=== PATIENT | female | born 1935 | race Caucasian/White ===

== ENCOUNTER 2016-07-11 03:05 | Inpatient (IN) ==
[2016-07-11] MEDS ORDERED: ASPIRIN 325 MG TABLET PO STA (05:13)
[2016-07-11] MEDS ORDERED: NITROGLYCERIN 2% OINT 1 INCH/GM PACK TOP STA (05:13)
[2016-07-11] MEDS ORDERED: ONDANSETRON 4 MG/2 ML VIAL IV STA (05:13)
[2016-07-11] MEDS ORDERED: ASPIRIN 325 MG TABLET ONE (05:26)
[2016-07-11] MEDS ORDERED: ONDANSETRON 4 MG/2 ML VIAL ONE (05:26)
[2016-07-11] MEDS ORDERED: NITROGLYCERIN 2% OINT 1 INCH/GM PACK TOP ONE (05:26)
[2016-07-11 05:46] LABS: Basophils % 0.3 % (0.0-0.8); Eosinophils % 0.1 % (0.00-10.9); Hematocrit 44.2 VOL% (35.7-47.0); Hemoglobin 14.9 GM/DL (12.0-16.0); Immature Granulocytes % 0.3 %; Immature Granulocytes Absolute 0.02 #; Lymphocytes # 1.3 10*3/uL (1.4-4.0); Lymphocytes % 18.6 % (21.3-54.2); Mean Corpuscular HGB Conc 33.7 GM/DL (32-36); Mean Corpuscular Hemoglobin 28 PG (27-34); Mean Corpuscular Volume 83.4 FL (87-102); Mean Platelet Volume 9.6 FL (9.6-12.0); Monocytes # 0.5 10*3/uL (0.11-0.8); Neutrophils # 4.9 10*3/uL (1.4-7.4); Neutrophils % 72.7 % (38.7-73.9); Platelet Count 198 T/CUMM (130-400); Red Cell Distribution Width 13.3 % (9.3-17.3); White Blood Count 6.7 T/CUMM (4-12)
[2016-07-11 06:07] LABS: Albumin 4.3 G/DL (3.4-5.0); Bilirubin,Total 0.7 MG/DL (0.2-1.0); Calcium 9.1 MG/DL (8.5-10.1); Magnesium 2.1 MG/DL (1.8-2.4); Osmolality,Calculated 266.4 MOS/KG (273-304); Potassium 3.9 MMOL/L (3.5-5.1); Total Protein 7.9 G/DL (6.4-8.3)
[2016-07-11] MEDS ORDERED: ONDANSETRON 4 MG/2 ML VIAL IV PRN (06:29)
--- NOTE | 2016-07-11 06:29 | Emergency Department Note ---
IJanes Emily, am scribing for, and in the presence of, Ca Rose DO 05:03. IMilton Catherine, DO, personally performed the services described in this documentation, ascribed by Risa Marrero in my presence, and it is both accurate and complete 628 . Arrival - Arrival Chief Complaint: Chest Pain ED Nursing Triage Note: C/O Tightness in chest while she was being evaluated at [facility] for a nose bleed. Pt reports that she still feels a little tightness at this time. Pt recently lost her , so she has been under some stress. Mode of Arrival: Stretcher Limitations: No Limitations Source: Patient, Family (son) Time Seen by Provider: 07/11/16 04:49 - History of Present Illness HPI Narrative: Pt is a 80 y/o female who was transferred from [facility] in [place], [place], for further evaluation of chest pain at 530pm yesterday. Pt's original cc was epistaxis. Her recently on June 12, 2016. Pt notes having mild tightness in chest in waves, dull sensation, but denies chest pain. PMHx of ID in 2008 stents; heart cath. Pt is on Coumadin under supervision by Dr. Roberson, in which last check up was in 2015. Son reports [facility] was more concerned with BP elevated. Onset (ago): day(s) Consistency: constant Severity: mild Severity scale (1-10): 3 Quality: dull Date of Last Menstrual Period: PM Allergies/Adverse Reactions: Allergies Allergy/AdvReac Type Severity Reaction Status Date / Time ciprofloxacin [From Cipro] Allergy RASH Verified 07/28/14 11:00 Home Medications: Home Medications Medication Instructions Recorded Confirmed Type Aspirin EC Tab 81 mg PO DAILY 07/28/14 07/11/16 History Calcium Carbonate [Calcium] 600 mg PO DAILY 07/28/14 07/11/16 History Hydroxychloroquine [Plaquenil] 200 mg PO DAILY 07/28/14 07/11/16 History Lisinopril/Hctz 20-25 [Prinzide 1 mg PO DAILY 07/28/14 07/11/16 History 20-25] Metoprolol Tartrate 25 mg PO DAILY 07/28/14 07/11/16 History [place]-3/Dha/Epa/Fish Oil [Fish Oil] 1,000 mg PO DAILY 07/28/14 07/11/16 History Rosuvastatin [Crestor] 1 tablet PO DAILY 07/28/14 07/11/16 History Warfarin Sodium 5 mg PO DIRECTED 07/28/14 07/11/16 History Warfarin [Coumadin] 2.5 mg PO QOTHER DAY@1800 07/28/14 07/11/16 History cycloSPORINE OPH EMUL [Restasis] 1 drop BOTH EYES BID 07/28/14 07/11/16 History Review of System - Review of System 12 point system: reviewed and no additional remarkable complaints except as stated - Review of System Constitutional: Absent: diaphoresis, fever, weakness Head/Ears/Nose/Throat: Present: epistaxis ([facility] original complaint) Respiratory: Absent: cough, respiratory distress Cardiovascular: Absent: chest pain (tightness) Gastrointestinal: Absent: abdominal pain, nausea, vomiting Musculoskeletal: Absent: arm pain, neck pain Skin: Absent: rash Neurological: Absent: headache, weakness Psychiatric: Present: anxiety Medical,Surgical,& Family Hx - Medical History Cardio: History of: CAD, Hypertension, ID (2009), Cardiovascular Problems Neurology: History of: TIA Rheumatology: History of;: Sjogrens Hematology: History of: Clotting Problems (BLOOD CLOT HEART 2008. Patient now on Coumadin.) - Surgical History Cardiac Surgeries: Sugical HX of: Cardiac Surgery (STENT 2008) - Family History Family History: noncontributory - Social History Smoking Status: Never smoker Frequency of Alcohol Use: None Type of Drug Use: None Marital Status: Lives With:: Alone Functional capacity: independent ambulation Exam Vital Signs: Vital Signs Temperature 98.2 F 07/11/16 03:03 Pulse Rate 85 07/11/16 03:03 Respiratory Rate 14 07/11/16 03:03 Blood Pressure 201/95 07/11/16 03:03 O2 Sat by Pulse Oximetry 97 07/11/16 03:03 - General General appearance: alert, in no apparent distress - Head Head exam: Present: atraumatic, normocephalic - Eye Eye exam: Present: PERRL, EOMI - ENT ENT exam: Present: mucous membranes moist. Absent: mucous membranes dry - Neck Neck exam: Present: full ROM. Absent: tenderness - Chest Chest inspection: Present: symmetric chest wall rise. Absent: tenderness - Respiratory Respiratory exam: Present: normal lung sounds bilaterally. Absent: respiratory distress - Cardiovascular Cardiovascular exam: Present: regular rate, normal rhythm, normal heart sounds - Abdominal Exam Abdominal exam: Present: soft, normal bowel sounds. Absent: distention, tenderness, guarding, rebound - Extremities Exam Extremities exam: Present: full ROM. Absent: tenderness, pedal edema - Back Exam Back exam: Present: normal inspection, full ROM - Neurological Exam Neurological exam: Present: alert, oriented X3, CN II-XII intact. Absent: motor sensory deficit - Psychiatric Psychiatric exam: Present: normal affect, normal mood - Skin Skin exam: Present: warm, dry, intact, normal color Course Course Narrative: This is an 80-year-old female who was transferred from another facility for evaluation of some chest pressure and high blood pressure. She went to the other facility for evaluation of a nosebleed while she was there they noted she was hypertensive. They begin treating high blood pressure and then the patient developed some chest pain. Although her enzymes were negative the ER physician and transferred her was concerned because her pain was coming and going. She does have a cardiac history having had one heart attack in 1 stent. She is followed by Dr. Roberson from the cardiology group. Her son reports she's had some recent stress her approximately 3 weeks ago. No other changes are reported. The patient is pain-free on my evaluation. She did have 2 negative troponins at the other facility. Physical exam patient's awake alert a viral signs are stable she's afebrile HEENT exam is normal neck is supple heart is regular rate and rhythm her lungs are clear in the anterior correia. She has no reproducible pain to my exam her abdomen is round soft nontender with good bowel sounds surgeries are intact her neurologic exam is nonfocal. Treatment in the ER included an EKG which shows nonspecific changes she does have some T-wave inversion in the lateral leads she has deep Q waves in the inferior leads but I do not appreciate findings for a STEMI. All of her previous testing was reviewed. I put some nitro paste on the patient with improvement in her symptoms. I placed a phone call to the cardiology service and will be admitting the patient at this time. - Consultations Consultation #1: Dr. Forrest will be admitting the patient for cardilogy evaluation and treatment Time: 06:27 Results - Labs CBC & BMP: 07/11/16 05:35 07/11/16 05:35 Lab Results: I have reviewed the patients labs Labs: Laboratory Tests 07/11/16 07/11/16 05:35 05:35 MCV 83.4 L Lymph % (Auto) 18.6 L Lymph # (Auto) 1.3 L Sodium 133 L Glucose 116 H Calculated Osmolality 266.4 L Globulin 3.6 H - EKG EKG results: interpreted by ERMD - Impressions non specific ST T changes - t waves inverted lateral leads - Diagnostic Findings Procedure: Chest x-ray: report reviewed by me (no acute process) Disposition Clinical Impression: Chest pain, HTN (hypertension) Case discussed with: patient, patient's family Disposition: Still a Patient Condition: Stable Time of Disposition: 06:28
--- NOTE | 2016-07-11 07:59 | EKG Report ---
Stationary ECG Study [facility] ER Test Date: 07/11/2016 3:11:35 AM Pat Name: DEION HAYS Department: Room: 289 Gender: F Lab Support Tech: : 1935 Requested by: Ca Rose Order Number: [id number] Reading MD: SEAN ORTIZ Intervals [place] Rate: 85 P: 71 HI: 202 QRS: -57 QRSD: 96 T: 74 QT: 371 QTc: 413 Interpretive Statements SINUS RHYTHM LEFT ANTERIOR FASCICULAR BLOCK ANTEROSEPTAL MYOCARDIAL INFARCTION, PROBABLY RECENT * Electronically Signed On 07-11-16 15:09:37 CDT by SEAN ORTIZ [email or web address]
--- NOTE | 2016-07-11 09:20 | EKG Report ---
Stationary ECG Study [facility] Test Date: 07/11/2016 9:19:52 AM Pat Name: DEION HAYS Department: Room: 289 Gender: F Drop Hammer Operator Helper: MALIA : 1935 Requested by: Ca Rose Order Number: [id number] Reading MD: SEAN ORTIZ Intervals [place] Rate: 70 P: 999 MS: 0 QRS: -47 QRSD: 94 T: -1 QT: 447 QTc: 467 Interpretive Statements SINUS RHYTHM WITH NONCONDUCTED PAC LEFT ANTERIOR FASCICULAR BLOCK ANTEROSEPTAL MYOCARDIAL INFARCTION, PROBABLY RECENT Electronically Signed On 07-11-16 15:14:19 CDT by SEAN ORTIZ [email or web address]
--- NOTE | 2016-07-11 11:32 | EKG Report ---
Stationary ECG Study [facility] Test Date: 07/11/2016 11:31:26 AM Pat Name: DEION HAYS Department: Room: 289 Gender: F Second Mate: MALIA : 1935 Requested by: Ca Rose Order Number: [id number] Reading MD: SEAN ORTIZ Intervals [place] Rate: 76 P: 91 NV: 184 QRS: -71 QRSD: 85 T: 196 QT: 424 QTc: 454 Interpretive Statements SINUS RHYTHM LEFT ANTERIOR FASCICULAR BLOCK ANTEROSEPTAL MYOCARDIAL INFARCTION, PROBABLY RECENT Electronically Signed On 07-11-16 15:16:31 CDT by SEAN OTRIZ [email or web address]
--- NOTE | 2016-07-11 12:02 | Cardiology History & Physical ---
Assessment and Plan (1) Chest pain Status: Acute Assessment and plan: Ultimately, I think the patient needs to undergo cardiac ischemic screening. I discussed the option of doing this as an outpatient, as an inpatient, or proceeding directly to cardiac catheterization for definitive coronary artery assessment. The patient would prefer to remain in the hospital and get noninvasive workup tomorrow. I'm going to schedule her for a nuclear stress test in the morning. Current Visit: Yes (2) HTN (hypertension) Status: Acute Assessment and plan: Her blood pressure was poorly controlled on arrival. I'm going to adjust her medication to try to optimize this. Current Visit: Yes (3) History of anterior wall myocardial infarction Status: Acute Current Visit: Yes (4) Coronary artery disease Status: Acute Current Visit: Yes (5) Chronic anticoagulation Status: Acute Current Visit: Yes (6) Hyperlipidemia Status: Acute Current Visit: Yes (7) Abnormal EKG Status: Acute Current Visit: Yes (8) Grieving Status: Acute Assessment and plan: The patient's about 3 weeks ago. Current Visit: Yes History of Present Illness History of present illness: Ms. Andrews is a 80 year old female who has a history of hypertension, hyperlipidemia, and coronary artery disease. She is also on chronic anticoagulation with Coumadin. Her primary building and construction manager is Dr. Roberson. The patient had an anterior myocardial infarction in 2008 and received a stent at that time from Dr. Roberson. She subsequently had cardiac catheterization in 2011 for some chest pain symptoms, but this did not show any new high-grade disease. Her stent was patent at that time. The patient developed a nosebleed yesterday. This lasted for several hours. She eventually went to her local emergency room in [place]. The nosebleed stopped but the patient developed some sensation of chest pressure. This was in the center of her chest. There was no radiation. It was mild to moderate in severity. There were no specific exacerbating or alleviating factors. There was no diaphoresis or nausea. She did not have any dyspnea, orthopnea, or peripheral edema. The symptoms waxed and waned but with her cardiac history she was transferred here for further workup and management. At the time I was seeing her she was pain-free. She has not had any fever, chills, or cough. Also of note, her blood pressure was extremely high in the emergency room. The patient was suspicious that maybe her PT/INR was too high which was contributing to her nosebleed. This is stopped and not recurred. The patient was admitted overnight to rule out myocardial infarction. Her cardiac enzymes have been benign. Her EKG is abnormal showing an old anteroseptal myocardial infarction with some diffuse ST- T changes. However, this EKG is not really significantly different than her old EKGs. Another factor in the patient's presentation is the of her about 3 weeks ago which has been considerable stress on the family. Home Medications Medication Instructions Recorded Confirmed Type Aspirin EC Tab 81 mg PO DAILY 07/28/14 07/11/16 History Calcium Carbonate [Calcium] 600 mg PO DAILY 07/28/14 07/11/16 History Hydroxychloroquine [Plaquenil] 200 mg PO DAILY 07/28/14 07/11/16 History Lisinopril/Hctz 20-25 [Prinzide 1 mg PO DAILY 07/28/14 07/11/16 History 20-25] Metoprolol Tartrate 25 mg PO DAILY 07/28/14 07/11/16 History [place]-3/Dha/Epa/Fish Oil [Fish Oil] 1,000 mg PO DAILY 07/28/14 07/11/16 History Rosuvastatin [Crestor] 10 mg PO DAILY 07/28/14 07/11/16 History Warfarin Sodium 5 mg PO DIRECTED 07/28/14 07/11/16 History Warfarin [Coumadin] 2.5 mg PO QOTHER DAY@1800 07/28/14 07/11/16 History cycloSPORINE OPH EMUL [Restasis] 1 drop BOTH EYES BID 07/28/14 07/11/16 History Allergies Allergy/AdvReac Type Severity Reaction Status Date / Time ciprofloxacin [From Cipro] Allergy RASH Verified 07/28/14 11:00 12 point system: reviewed and no additional remarkable complaints except as stated Medical,Surgical,& Family Hx - Medical History Cardio: History of: CAD, Hypertension, [place] (2008), Cardiovascular Problems Psychological: History of: Depression Neurology: History of: TIA HEENT: History of: Eye Problem (cataracts bilat) Rheumatology: History of;: Sjogrens Gastrointestinal: History of: Polyps (removed) Hematology: History of: Clotting Problems (BLOOD CLOT HEART 2008. Patient now on Coumadin.) - Surgical History Cardiac Surgeries: Sugical HX of: Cardiac Catheterization (stent 2008), Cardiac Surgery (STENT 2008) HEENT Surgeries: Surgical HX of: Tonsilectomy & Adenoidectomy Abdominal Surgeries: Surgical HX of: Colonoscopy Reproductive Surgeries: Surgical HX of;: Dilation and Curettage, Hysterectomy ( partial) - Family History Family History: Reports;: Family Diabetes (mother), Family Heart Disease (father ), Family Hypertension (mother, sibling), Family Stroke (mother), Additional Family History (mother RA) - Social History Smoking Status: Never smoker Frequency of Alcohol Use: None Type of Drug Use: None Cardiology Physical Exam - Constitutional Vitals: Vital Signs Temp Pulse Resp BP Pulse Ox 96.4 F L 76 20 168/85 99 07/11/16 07:55 07/11/16 07:55 07/11/16 07:55 07/11/16 07:55 07/11/16 07:55 Intake and Output 07/10/16 07/11/16 07/11/16 23:59 07:59 15:59 Other: Weight 53.07 kg Patient Weight 07/11/16 23:59 Weight 53.07 kg Exam: General: Appears well developed, well nourished, no apparent distress HEENT: Normocephalic, atraumatic Neck: Supple Neck, Midline Trachea, soft left carotid bruit Cardiac: Reg Rate and Rhythm, 2/6 systolic Murmur, no gallop, no rub Lungs: Clear to auscultation, No Wheeze, Rales, Rhonchi Neuro: Cranial Nerve 2-12 Intact, Motor Function Grossly Intact Abdomen: Soft, Active Bowel Sounds, No Masses, No Pulsations/Bruits Skin: Normal color, no rash Extremities: No Clubbing, No Cyanosis, No Edema, Normal Upper Extr. Pulses Musculoskeletal: No acute abnormality noted Psychiatric: The patient does not appear to be anxious or depressed Result/EKG - Labs CBC & BMP: 07/11/16 05:35 07/11/16 05:35 Lab Results: I have reviewed the past 24 hour labs Labs: Laboratory Results - last 24 hr 07/11/16 07/11/16 08:20 10:42 Troponin I 0.043 0.044 - EKG EKG results: interpreted by me
[2016-07-11 18:32] LABS: INR 1.7; PT Patient Result 18.4 SECS
[2016-07-11] MEDS: WARFARIN 2.5 MG TABLET PO SCH (18:45)
[2016-07-11] MEDS: cycloSPORINE OPH EMUL 1 VIAL BOTH EYES SCH (22:03)
[2016-07-12 05:33] LABS: INR 1.6
[2016-07-12] MEDS ORDERED: REGADENOSON 0.4 MG/5 ML SYRINGE IV ONE (07:55)
--- NOTE | 2016-07-12 09:52 | Cardiology Progress Note ---
<Luz Maria Hassan E - Last Filed: 07/12/16 09:52> Assessment and Plan - Time spent with patient Time spent with patient: Greater than 30 minutes (1) Chest pain Status: Resolved Assessment and plan: See plan of care listed below Current Visit: Yes (2) Chronic anticoagulation Status: Chronic Assessment and plan: See plan of care listed below Current Visit: Yes (3) Coronary artery disease Status: Chronic Assessment and plan: See plan of care listed below Current Visit: Yes (4) HTN (hypertension) Status: Chronic Assessment and plan: See plan of care listed below Current Visit: Yes (5) History of anterior wall myocardial infarction Status: Chronic Assessment and plan: See plan of care listed below Current Visit: Yes (6) Hyperlipidemia Status: Chronic Assessment and plan: See plan of care listed below Current Visit: Yes Cardiology - PN: Subj Interval history: FOOD STOREROOM CLERK: DR. MURRAY PCP: DR. DEBBIE BACON Summary: Ms. Andrews, 80 year old female with risk factors including: known CAD , hypertension, hyperlipidemia, sedentary lifestyle. History of anterior [place] 2008 requiring PCI-stent. She subsequently had cardiac catheterization in 2011 for some chest pain symptoms, but this did not show any new high-grade disease. Her stent was patent at that time. 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 Tuesday, she developed a nosebleed which lasted for several hours (INR was not supratherapeutic). She eventually went to her local emergency room in [place] and found to have significant hypertension. The nosebleed stopped but the patient developed some sensation of substernal chest pressure without radiation. There were no specific exacerbating or alleviating factors, she considered the pain mild to moderate. The symptoms waxed and waned but with her cardiac history she was transferred to [facility] for further workup and management. She was offered [facility] but prefers noninvasive work-up. She is scheduled for stress testing this morning. CIE negative, EKG unremarkable. Of note, patient's three weeks ago and this has been a tremendous stressor. DAY 2: JULY 12, 2016: Overnight, patient has done well. No chest pain, heaviness or tightness. She is NPO for stress testing this morning. Vital signs are stable. ASSESSMENT/PLAN: 1. CHEST PAIN - NPO for stress testing this morning. Will add PPI 2. KNOWN CAD S/P ANTERIOR [place] 2008 - continue ASA, betablockade, EMMA-Inhibitor and lipid lowering agent 3. HYPERTENSION - adequately controlled. Actually on the low-side this morning 4. DYSLIPIDEMIA - continue lipide lowering agent. 5. HIGH RISK MEDICATION - Coumadin. Subtherapeutic INR. Exam (Progress Note) - Constitutional Vitals: Period Temp Pulse Resp BP Sys/Britt Pulse Ox Last 24 Hr 95.6 F-99.1 F 63-87 17-20 96-126/55-76 95-100 General appearance: no acute distress, under weight - Head Head exam: Present: normal inspection, normocephalic - Eye Eye exam: Present: EOMI. Absent: nystagmus, periorbital swelling Pupils: Present: COREY, normal accommodation - ENT ENT exam: Present: normal external ear exam, normal oropharynx - Neck Neck exam: Absent: tenderness, thyromegaly - Respiratory Respiratory exam: Present: clear to auscultation bilaterally. Absent: accessory muscle use, chest wall tenderness - Cardiovascular Cardiovascular exam: Present: regular rate and rhythm. Absent: carotid bruit, JVD - GI/Abdominal GI/Abdominal exam: Present: normal bowel sounds, soft. Absent: tenderness - Extremities Exam Extremities exam: Present: normal capillary refill, full ROM. Absent: calf tenderness - Back Exam Back exam: Absent: CVA tenderness (L), CVA tenderness (R), muscle spasm - Neurological Exam Neurological exam: Present: alert, oriented X3 - Psychiatric Psychiatric exam: Present: normal affect, normal mood - Skin Skin exam: Present: normal color. Absent: rash Result/EKG - Labs CBC & BMP: 07/11/16 05:35 07/11/16 05:35 Lab Results: I have reviewed the past 24 hour labs Labs: Laboratory Results - last 24 hr 07/11/16 07/11/16 07/12/16 10:42 17:59 04:28 INR 1.7 1.6 PT Patient/Control Mix 18.4 17.0 Troponin I 0.044 - Diagnostic Findings Procedure: Chest x-ray: report reviewed by me - EKG EKG results: interpreted by tx EKG shows: sinus rhythm <Ugo Murray - Last Filed: 07/12/16 18:00> Cardiology - PN: Subj Interval history: Patient personally interviewed and examined. Chart reviewed. Discussed case with Luz Maria Hassan SALES REPRESENTATIVE [employer]. History is as above. The patient's chest pain is certainly atypical. She had a recent nosebleed and her blood pressures were not initially managed but is stable at this time. She has some atypical chest pain and can't perfuse times Daily which we are waiting up. The patient does state that since her event of nosebleed Tuesday that she has been feeling weak. The daughter who is with her confirms this. Patient examined and is stable and as as noted. After we have her cardiac perfusion study available we will then review this and make further recommendations. Hopefully she will be discharged soon. Exam (Progress Note) - Constitutional Vitals: Period Temp Pulse Resp BP Sys/Britt Pulse Ox Last 24 Hr 95.6 F-99.1 F 63-87 17-20 96-132/55-76 96-100 Result/EKG - Labs CBC & BMP: 07/11/16 05:35 07/11/16 05:35 Labs: Laboratory Results - last 24 hr 07/11/16 07/12/16 17:59 04:28 INR 1.7 1.6 PT Patient/Control Mix 18.4 17.0
--- NOTE | 2016-07-12 09:58 | Event Note ---
Underwent Lexiscan protocol due to gait instability. Tolerated without complaints of chest pain, heaviness or tightness. No arrythmia noted. No ST changes noted. Now, to nuclear medicine to complete final scan. Dr. Hampton to read, interpret and advise.
[2016-07-12] MEDS: OMEGA 3 ACID ETHYL ESTERS 1 GM CAPSULE PO SCH (10:21)
[2016-07-12] MEDS: ROSUVASTATIN 10 MG TABLET PO SCH (10:21)
[2016-07-12] MEDS: HYDROXYCHLOROQUINE 200 MG TABLET PO SCH (10:21)
[2016-07-12] MEDS: CALCIUM (CARBONATE) 600 MG TABLET PO SCH (10:21)
[2016-07-12] MEDS: ASPIRIN EC 81 MG TABLET PO SCH (10:21)
[2016-07-12] MEDS: LISINOPRIL/HCTZ 20-25 MG TABLET PO SCH (10:21)
[2016-07-12] MEDS: METOPROLOL SUCCINATE XL 25 MG TABLET PO SCH (10:21)
[2016-07-12] MEDS: cycloSPORINE OPH EMUL 1 VIAL BOTH EYES SCH ×2 (10:22→21:08)
[2016-07-12] MEDS ORDERED: WARFARIN 5 MG TABLET PO SCH (18:00)
--- NOTE | 2016-07-12 20:54 | Nuclear Medicine Report ---
DATE: 07/11/2016 The raw data cine mode shows minimal patient motion with modest GI artifact. IMPRESSION: 1. SCINTIGRAPHICALLY ABNORMAL MYOCARDIAL PERFUSION WITH SEVERE LARGE FIXED APICAL DEFECT INVOLVING THE DISTAL ANTERIOR WALL SUGGESTING SCARRING WITH NO SUGGESTION OF ISCHEMIA 2. BORDERLINE OVERALL LEFT VENTRICULAR SYSTOLIC FUNCTION WITH EJECTION FRACTION ESTIMATED AT 53% WI TH MODERATE TO LARGE AREA OF APICAL AKINESIS INVOLVING THE DISTAL ANTERIOR WALL. 3. NORMAL END-DIASTOLIC VOLUME IS NOTED. RECOMMENDATION AND DISCUSSION: This study suggests severe scarring of the apex involving the distal anterior wall. There is no suggestive ischemia. The patient's borderline overall LV Function is n oted. Procedure performed and interpreted at [facility] Department of Radiology.
[2016-07-13 06:13] LABS: Basophils % 0.2 % (0.0-0.8); Eosinophils # 0.1 10*3/uL (0.0-0.87); Eosinophils % 2.1 % (0.00-10.9); Hematocrit 41.7 VOL% (35.7-47.0); Hemoglobin 13.6 GM/DL (12.0-16.0); Immature Granulocytes % 0.2 %; Immature Granulocytes Absolute 0.01 #; Lymphocytes # 1.7 10*3/uL (1.4-4.0); Lymphocytes % 31.4 % (21.3-54.2); Mean Corpuscular HGB Conc 32.6 GM/DL (32-36); Mean Corpuscular Hemoglobin 28 PG (27-34); Mean Corpuscular Volume 85.5 FL (87-102); Mean Platelet Volume 9.7 FL (9.6-12.0); Monocytes # 0.6 10*3/uL (0.11-0.8); Monocytes % 11.6 % (1.7-12.7); Neutrophils # 2.9 10*3/uL (1.4-7.4); Neutrophils % 54.5 % (38.7-73.9); Platelet Count 185 T/CUMM (130-400); Red Blood Count 4.88 MC/CUMM (3.8-5.5); Red Cell Distribution Width 13.7 % (9.3-17.3); White Blood Count 5.3 T/CUMM (4-12)
[2016-07-13 06:34] LABS: Magnesium 2.2 MG/DL (1.8-2.4); Osmolality,Calculated 269.2 MOS/KG (273-304); Potassium 4.3 MMOL/L (3.5-5.1)
[2016-07-13] MEDS: ASPIRIN EC 81 MG TABLET PO SCH (08:45)
[2016-07-13] MEDS: METOPROLOL SUCCINATE XL 25 MG TABLET PO SCH (08:45)
[2016-07-13] MEDS: ROSUVASTATIN 10 MG TABLET PO SCH (08:45)
[2016-07-13] MEDS: OMEGA 3 ACID ETHYL ESTERS 1 GM CAPSULE PO SCH (08:45)
[2016-07-13] MEDS: CALCIUM (CARBONATE) 600 MG TABLET PO SCH (08:45)
[2016-07-13] MEDS: LISINOPRIL/HCTZ 20-25 MG TABLET PO SCH (08:45)
[2016-07-13] MEDS: HYDROXYCHLOROQUINE 200 MG TABLET PO SCH (08:45)
[2016-07-13] MEDS: cycloSPORINE OPH EMUL 1 VIAL BOTH EYES SCH ×2 (08:46→21:10)
[2016-07-13 11:01] LABS: INR 1.8; PT Patient Result 19.6 SECS
--- NOTE | 2016-07-13 15:41 | Cardiology Progress Note ---
<Nida Grant - Last Filed: 07/13/16 15:35> Assessment and Plan (1) Chest pain Status: Acute Assessment and plan: Patient continues to complain of intermittent mild chest discomfort. She is currently chest pain-free. This could possibly be stress related as the patient 's approximately 3 weeks ago. Will discuss case further with Dr. Murray, invasive workup versus possible GI workup. Will add PPI. Further plan and addendum to follow per Dr. Murray. Current Visit: Yes (2) Chronic anticoagulation Status: Chronic Assessment and plan: Today is 1.8. Continue to monitor with daily INR. Current Visit: Yes (3) Coronary artery disease Status: Chronic Current Visit: Yes (4) HTN (hypertension) Status: Chronic Assessment and plan: Blood pressure is well controlled. Will continue current plan of care. Current Visit: Yes (5) History of anterior wall myocardial infarction Status: Chronic Current Visit: Yes (6) Hyperlipidemia Status: Chronic Assessment and plan: Continue current plan of care with lipid lowering agent. Current Visit: Yes Cardiology - PN: Subj Interval history: COAT CHECKER: DR. MURRAY PCP: DR. DEBBIE BACON Summary: Ms. Andrews, 80 year old female with risk factors including: known CAD , hypertension, hyperlipidemia, sedentary lifestyle. History of anterior [place] 2008 requiring PCI-stent. She subsequently had cardiac catheterization in 2011 for some chest pain symptoms, but this did not show any new high-grade disease. Her stent was patent at that time. 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 Tuesday, she developed a nosebleed which lasted for several hours (INR was not supratherapeutic). She eventually went to her local emergency room in [place] and found to have significant hypertension. The nosebleed stopped but the patient developed some sensation of substernal chest pressure without radiation. There were no specific exacerbating or alleviating factors, she considered the pain mild to moderate. The symptoms waxed and waned but with her cardiac history she was transferred to [facility] for further workup and management. She was offered C but prefers noninvasive work-up. CIE negative , EKG unremarkable. Of note, patient's three weeks ago and this has been a tremendous stressor. Patient underwent nuclear stress testing yesterday morning. 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 There is no suggestive of ischemia. Patient was seen and examined on telemetry. She reports she continued to have mild episodes of chest discomfort throughout the night. She describes this as a chest tightness. Nonradiating. She is unable to identify any alleviating or aggravating factors. She tells me that her chest tightness is less severe than when she presented to the ER on Tuesday. She denies shortness of breath and heart palpitations/heart racing. She is without chest pain, heaviness and tightness at this current time. INR is 1.8 today. We will discuss this further with Dr. Murray. Further plan and addendum to follow. Exam (Progress Note) - Constitutional Vitals: Period Temp Pulse Resp BP Sys/Britt Pulse Ox Last 24 Hr 96.8 F-98.1 F 67-81 16-20 102-145/58-74 96-98 Exam: General appearance: no acute distress, under weight - Head Head exam: Present: normal inspection, normocephalic - Eye Eye exam: Present: EOMI. Absent: nystagmus, periorbital swelling Pupils: Present: COREY, normal accommodation - ENT ENT exam: Present: normal external ear exam, normal oropharynx - Neck Neck exam: Absent: tenderness, thyromegaly - Respiratory Respiratory exam: Present: clear to auscultation bilaterally. Absent: accessory muscle use, chest wall tenderness - Cardiovascular Cardiovascular exam: Present: regular rate and rhythm. Absent: carotid bruit, JVD - GI/Abdominal GI/Abdominal exam: Present: normal bowel sounds, soft. Absent: tenderness - Extremities Exam Extremities exam: Present: normal capillary refill, full ROM. Absent: calf tenderness - Back Exam Back exam: Absent: CVA tenderness (L), CVA tenderness (R), muscle spasm - Neurological Exam Neurological exam: Present: alert, oriented X3 - Psychiatric Psychiatric exam: Present: normal affect, normal mood - Skin Skin exam: Present: normal color. Absent: rash Result/EKG - Labs CBC & BMP: 07/13/16 05:22 07/13/16 05:22 Lab Results: I have reviewed the past 24 hour labs Labs: Laboratory Results - last 24 hr 07/13/16 07/13/16 07/13/16 05:22 05:22 10:39 WBC 5.3 RBC 4.88 Hgb 13.6 Hct 41.7 MCV 85.5 L MCH 28 MCHC 32.6 RDW 13.7 Plt Count 185 MPV 9.7 Neut % (Auto) 54.5 Lymph % (Auto) 31.4 [place] % (Auto) 11.6 Eos % (Auto) 2.1 Baso % (Auto) 0.2 Neut # (Auto) 2.9 Lymph # (Auto) 1.7 [place] # (Auto) 0.6 Eos # (Auto) 0.1 Baso # (Auto) 0.0 Immature Gran % 0.2 Nucleated RBC % 0.0 Immature Gran # 0.01 Nucleated RBCs # 0.00 INR 1.8 PT Patient/Control Mix 19.6 Sodium 134 L Potassium 4.3 Chloride 96 L Carbon Dioxide 30 Anion Gap 12.3 BUN 22 H Creatinine 1.00 GFR Calculation 48 BUN/Creatinine Ratio 22.00 H Glucose 81 Calculated Osmolality 269.2 L Calcium 9.0 Magnesium 2.2 <Ugo Murray - Last Filed: 07/13/16 17:28> Cardiology - PN: Subj Interval history: Patient personally interviewed and examined. Chart reviewed. Discussed the patient's case with Nida Grant CLINICAL LABORATORY SCIENTIST. I agree with the history exam and assessment. In addition the patient's cardiac perfusion study indeed does not reveal any inducible ischemia but with overall normal ejection fraction and scarring in the apex which is an old finding. Ejection fraction is 53%. Patient's biggest complaint is that he is feeling fatigued. I suspect this may be secondary to the Procardia and her blood pressures dropping as much as they have. They're essentially normal but they're much more than what they were when she was admitted. She feels weak when she gets up. We'll continue to monitor and do orthostatic blood pressures. We'll encourage her to get up and about. In the morning we'll reassess the patient. We have continued pain issues concerning this being her heart then proceeding with cardiac catheterization would be appropriate. We may just need to give her time to adjust to the Procardia but her blood pressures. Hopefully home soon. Exam (Progress Note) - Constitutional Vitals: Period Temp Pulse Resp BP Sys/Britt Pulse Ox Last 24 Hr 96.8 F-98.1 F 67-81 16-20 102-145/54-74 94-98 Result/EKG - Labs CBC & BMP: 07/13/16 05:22 07/13/16 05:22 Labs: Laboratory Results - last 24 hr 07/13/16 07/13/16 07/13/16 05:22 05:22 10:39 WBC 5.3 RBC 4.88 Hgb 13.6 Hct 41.7 MCV 85.5 L MCH 28 MCHC 32.6 RDW 13.7 Plt Count 185 MPV 9.7 Neut % (Auto) 54.5 Lymph % (Auto) 31.4 [place] % (Auto) 11.6 Eos % (Auto) 2.1 Baso % (Auto) 0.2 Neut # (Auto) 2.9 Lymph # (Auto) 1.7 [place] # (Auto) 0.6 Eos # (Auto) 0.1 Baso # (Auto) 0.0 Immature Gran % 0.2 Nucleated RBC % 0.0 Immature Gran # 0.01 Nucleated RBCs # 0.00 INR 1.8 PT Patient/Control Mix 19.6 Sodium 134 L Potassium 4.3 Chloride 96 L Carbon Dioxide 30 Anion Gap 12.3 BUN 22 H Creatinine 1.00 GFR Calculation 48 BUN/Creatinine Ratio 22.00 H Glucose 81 Calculated Osmolality 269.2 L Calcium 9.0 Magnesium 2.2
[2016-07-13] MEDS: PANTOPRAZOLE 40 MG TABLET PO SCH (16:57)
[2016-07-13] MEDS: WARFARIN 2.5 MG TABLET PO SCH (17:00)
[2016-07-14 05:46] LABS: Basophils % 0.6 % (0.0-0.8); Eosinophils # 0.1 10*3/uL (0.0-0.87); Hematocrit 41.1 VOL% (35.7-47.0); Hemoglobin 13.6 GM/DL (12.0-16.0); Immature Granulocytes % 0.2 %; Immature Granulocytes Absolute 0.01 #; Lymphocytes # 1.8 10*3/uL (1.4-4.0); Lymphocytes % 36.2 % (21.3-54.2); Mean Corpuscular HGB Conc 33.1 GM/DL (32-36); Mean Corpuscular Hemoglobin 28 PG (27-34); Mean Corpuscular Volume 84.7 FL (87-102); Mean Platelet Volume 9.7 FL (9.6-12.0); Monocytes # 0.5 10*3/uL (0.11-0.8); Monocytes % 10.3 % (1.7-12.7); Neutrophils # 2.5 10*3/uL (1.4-7.4); Neutrophils % 50.7 % (38.7-73.9); Platelet Count 193 T/CUMM (130-400); Red Blood Count 4.85 MC/CUMM (3.8-5.5); Red Cell Distribution Width 13.5 % (9.3-17.3)
[2016-07-14 05:55] LABS: INR 1.6; PT Patient Result 17.9 SECS
[2016-07-14 06:13] LABS: Calcium 8.7 MG/DL (8.5-10.1); Magnesium 2.1 MG/DL (1.8-2.4); Osmolality,Calculated 268.2 MOS/KG (273-304)
[2016-07-14] MEDS: LISINOPRIL/HCTZ 20-25 MG TABLET PO SCH (09:07)
[2016-07-14] MEDS: OMEGA 3 ACID ETHYL ESTERS 1 GM CAPSULE PO SCH (09:07)
[2016-07-14] MEDS: ASPIRIN EC 81 MG TABLET PO SCH (09:07)
[2016-07-14] MEDS: HYDROXYCHLOROQUINE 200 MG TABLET PO SCH (09:07)
[2016-07-14] MEDS: CALCIUM (CARBONATE) 600 MG TABLET PO SCH (09:07)
[2016-07-14] MEDS: PANTOPRAZOLE 40 MG TABLET PO SCH (09:07)
[2016-07-14] MEDS: METOPROLOL SUCCINATE XL 25 MG TABLET PO SCH (09:08)
[2016-07-14] MEDS: ROSUVASTATIN 10 MG TABLET PO SCH (09:08)
[2016-07-14] MEDS: cycloSPORINE OPH EMUL 1 VIAL BOTH EYES SCH ×2 (09:11→20:55)
--- NOTE | 2016-07-14 13:08 | Cardiology Progress Note ---
<Nida Grant - Last Filed: 07/14/16 13:05> Assessment and Plan (1) Chest pain Status: Resolved Assessment and plan: Vision without chest pain, heaviness and tightness. Patient had normal Cardiolite stress test this admission. Current Visit: Yes (2) Chronic anticoagulation Status: Chronic Assessment and plan: Subtherapeutic at 1.6. Coumadin dose has been adjusted. We will continue with daily INR. Current Visit: Yes (3) Coronary artery disease Status: Chronic Current Visit: Yes (4) HTN (hypertension) Status: Chronic Assessment and plan: We will discontinue Procardia at this time due to episodes of orthostatic hypotension. Continue all other antihypertensive medications. Current Visit: Yes (5) History of anterior wall myocardial infarction Status: Chronic Current Visit: Yes (6) Hyperlipidemia Status: Chronic Assessment and plan: Continue current plan of care with lipid lowering agent. Current Visit: Yes (7) Orthostatic hypotension Status: Acute Assessment and plan: We will hold Procardia at this time to see if this is contributing to her resistant hypertension. Will reassess this in the morning, hopefully she will be stable for discharge soon. Current Visit: Yes Cardiology - PN: Subj Interval history: AERONAUTICAL INSPECTOR: DR. MURRAY PCP: DR. DEBBIE BACON Summary: Ms. Andrews, 80 year old female with risk factors including: known CAD , hypertension, hyperlipidemia, sedentary lifestyle. History of anterior [place] 2008 requiring PCI-stent. She subsequently had cardiac catheterization in 2011 for some chest pain symptoms, but this did not show any new high-grade disease. Her stent was patent at that time. 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 Tuesday, she developed a nosebleed which lasted for several hours (INR was not supratherapeutic). She eventually went to her local emergency room in [place] and found to have significant hypertension. The nosebleed stopped but the patient developed some sensation of substernal chest pressure without radiation. There were no specific exacerbating or alleviating factors, she considered the pain mild to moderate. The symptoms waxed and waned but with her cardiac history she was transferred to [facility] for further workup and management. She was offered C but prefers noninvasive work-up. CIE negative , EKG unremarkable. Of note, patient's three weeks ago and this has been a tremendous stressor. Patient underwent nuclear stress testing yesterday morning. 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 There is no suggestive of ischemia. Patient was seen and examined on the telemetry floor. She denies chest pain, heaviness and tightness this morning. However, she continues to complain of mild weakness. Orthostatic vital signs were ordered yesterday she does appear to have episodes of orthostatic hypotension. After discussing with Dr. Murray, we will discontinue the Procardia. Will reassess this in the morning. She denies shortness of breath. Patient is currently in a normal sinus rhythm with heart rates in the 70s without any overt arrhythmias or ectopy noted. Hopefully she will be ready for discharge soon. Exam (Progress Note) - Constitutional Vitals: Period Temp Pulse Resp BP Sys/Britt Pulse Ox Last 24 Hr 96.5 F-98.9 F 62-88 18-18 84-138/53-71 94-99 Exam: Exam: General appearance: no acute distress, under weight - Head Head exam: Present: normal inspection, normocephalic - Eye Eye exam: Present: EOMI. Absent: nystagmus, periorbital swelling Pupils: Present: COREY, normal accommodation - ENT ENT exam: Present: normal external ear exam, normal oropharynx - Neck Neck exam: Absent: tenderness, thyromegaly - Respiratory Respiratory exam: Present: clear to auscultation bilaterally. Absent: accessory muscle use, chest wall tenderness - Cardiovascular Cardiovascular exam: Present: regular rate and rhythm. Absent: carotid bruit, JVD - GI/Abdominal GI/Abdominal exam: Present: normal bowel sounds, soft. Absent: tenderness - Extremities Exam Extremities exam: Present: normal capillary refill, full ROM. Absent: calf tenderness - Back Exam Back exam: Absent: CVA tenderness (L), CVA tenderness (R), muscle spasm - Neurological Exam Neurological exam: Present: alert, oriented X3 - Psychiatric Psychiatric exam: Present: normal affect, normal mood - Skin Skin exam: Present: normal color. Absent: rash Result/EKG - Labs CBC & BMP: 07/14/16 04:56 07/14/16 04:56 Lab Results: I have reviewed the past 24 hour labs Labs: Laboratory Results - last 24 hr 07/14/16 07/14/16 07/14/16 04:56 04:56 04:56 WBC 5.0 RBC 4.85 Hgb 13.6 Hct 41.1 MCV 84.7 L MCH 28 MCHC 33.1 RDW 13.5 Plt Count 193 MPV 9.7 Neut % (Auto) 50.7 Lymph % (Auto) 36.2 [place] % (Auto) 10.3 Eos % (Auto) 2.0 Baso % (Auto) 0.6 Neut # (Auto) 2.5 Lymph # (Auto) 1.8 [place] # (Auto) 0.5 Eos # (Auto) 0.1 Baso # (Auto) 0.0 Immature Gran % 0.2 Nucleated RBC % 0.0 Immature Gran # 0.01 Nucleated RBCs # 0.00 INR 1.6 PT Patient/Control Mix 17.9 Sodium 134 L Potassium 4.0 Chloride 97 L Carbon Dioxide 28 Anion Gap 13.0 BUN 19 H Creatinine 0.80 GFR Calculation 63 BUN/Creatinine Ratio 23.00 H Glucose 88 Calculated Osmolality 268.2 L Calcium 8.7 Magnesium 2.1 <Ugo Murray - Last Filed: 07/14/16 16:01> Cardiology - PN: Subj Interval history: Patient personally interviewed and examined and chart reviewed. Discuss case with Nida Grant CHARITY FUNDRAISER. Agree with history as well as examined assessment. Patient only complains about being weak and she is noted to have orthostatic hypotension. The Procardia was started on admission and this may certainly be the causative agent. This is been stopped. We'll monitor the blood pressures. Her heart rhythm is been stable. She really doesn't complain of chest pain but some palpitations. She's had no dysrhythmias and has been in sinus rhythm throughout hospital course. The daughters discussed the possibility of morning to go to a swing bed. We will monitor the patient and make further recommendation this regard based on our findings. Exam (Progress Note) - Constitutional Vitals: Period Temp Pulse Resp BP Sys/Britt Pulse Ox Last 24 Hr 96.5 F-98.9 F 62-88 18-18 84-138/53-71 95-99 Result/EKG - Labs CBC & BMP: 07/14/16 04:56 07/14/16 04:56 Labs: Laboratory Results - last 24 hr 07/14/16 07/14/16 07/14/16 04:56 04:56 04:56 WBC 5.0 RBC 4.85 Hgb 13.6 Hct 41.1 MCV 84.7 L MCH 28 MCHC 33.1 RDW 13.5 Plt Count 193 MPV 9.7 Neut % (Auto) 50.7 Lymph % (Auto) 36.2 [place] % (Auto) 10.3 Eos % (Auto) 2.0 Baso % (Auto) 0.6 Neut # (Auto) 2.5 Lymph # (Auto) 1.8 [place] # (Auto) 0.5 Eos # (Auto) 0.1 Baso # (Auto) 0.0 Immature Gran % 0.2 Nucleated RBC % 0.0 Immature Gran # 0.01 Nucleated RBCs # 0.00 INR 1.6 PT Patient/Control Mix 17.9 Sodium 134 L Potassium 4.0 Chloride 97 L Carbon Dioxide 28 Anion Gap 13.0 BUN 19 H Creatinine 0.80 GFR Calculation 63 BUN/Creatinine Ratio 23.00 H Glucose 88 Calculated Osmolality 268.2 L Calcium 8.7 Magnesium 2.1
[2016-07-14] MEDS: WARFARIN 5 MG TABLET PO SCH (17:36)
[2016-07-15 05:59] LABS: Basophils % 0.4 % (0.0-0.8); Eosinophils # 0.1 10*3/uL (0.0-0.87); Eosinophils % 1.2 % (0.00-10.9); Hemoglobin 13.4 GM/DL (12.0-16.0); Immature Granulocytes % 0.4 %; Immature Granulocytes Absolute 0.02 #; Lymphocytes # 1.8 10*3/uL (1.4-4.0); Lymphocytes % 35.7 % (21.3-54.2); Mean Corpuscular HGB Conc 33.5 GM/DL (32-36); Mean Corpuscular Hemoglobin 28 PG (27-34); Mean Corpuscular Volume 83.3 FL (87-102); Mean Platelet Volume 10.2 FL (9.6-12.0); Monocytes # 0.6 10*3/uL (0.11-0.8); Monocytes % 11.6 % (1.7-12.7); Neutrophils # 2.5 10*3/uL (1.4-7.4); Neutrophils % 50.7 % (38.7-73.9); Platelet Count 196 T/CUMM (130-400); Red Cell Distribution Width 13.6 % (9.3-17.3); White Blood Count 4.9 T/CUMM (4-12)
[2016-07-15 06:05] LABS: INR 1.7
[2016-07-15 06:12] LABS: Calcium 9.1 MG/DL (8.5-10.1); Magnesium 2.2 MG/DL (1.8-2.4); Osmolality,Calculated 270.1 MOS/KG (273-304); Potassium 3.6 MMOL/L (3.5-5.1)
[2016-07-15] MEDS: cycloSPORINE OPH EMUL 1 VIAL BOTH EYES SCH ×2 (08:39→21:04)
[2016-07-15] MEDS: ASPIRIN EC 81 MG TABLET PO SCH (08:40)
[2016-07-15] MEDS: CALCIUM (CARBONATE) 600 MG TABLET PO SCH (08:40)
[2016-07-15] MEDS: ROSUVASTATIN 10 MG TABLET PO SCH (08:40)
[2016-07-15] MEDS: METOPROLOL SUCCINATE XL 25 MG TABLET PO SCH (08:41)
[2016-07-15] MEDS: HYDROXYCHLOROQUINE 200 MG TABLET PO SCH (08:41)
[2016-07-15] MEDS: PANTOPRAZOLE 40 MG TABLET PO SCH (08:41)
[2016-07-15] MEDS: OMEGA 3 ACID ETHYL ESTERS 1 GM CAPSULE PO SCH (08:41)
[2016-07-15] MEDS: LISINOPRIL/HCTZ 20-25 MG TABLET PO SCH (08:41)
--- NOTE | 2016-07-15 16:25 | Cardiology Progress Note ---
<Nida Grant - Last Filed: 07/15/16 16:14> Assessment and Plan (1) Chest pain Status: Resolved Assessment and plan: She is without chest pain, heaviness and tightness. Patient had normal Cardiolite stress test this admission. Current Visit: Yes (2) Chronic anticoagulation Status: Chronic Assessment and plan: Subtherapeutic at 1.7. Coumadin dose adjusted yesterday. We will continue with daily INR. Current Visit: Yes (3) Coronary artery disease Status: Chronic Current Visit: Yes (4) HTN (hypertension) Status: Chronic Assessment and plan: We will continue to hold Procardia at this time due to episodes of orthostatic hypotension. We will continue to monitor orthostatic vital signs and further adjust as needed. Further plan and addendum to follow per Dr. Murray. Current Visit: Yes (5) History of anterior wall myocardial infarction Status: Chronic Current Visit: Yes (6) Hyperlipidemia Status: Chronic Assessment and plan: Continue current plan of care with lipid lowering agent. Current Visit: Yes (7) Orthostatic hypotension Status: Acute Assessment and plan: We will continue to hold Procardia at this time to see if this is contributing to her orthostatic hypotension. Hopefully she will be stable for discharge soon. Current Visit: Yes Cardiology - PN: Subj Interval history: DIAMOND POWDER TECHNICIAN: DR. MURRAY PCP: DR. DEBBIE BACON Summary: Ms. Andrews, 80 year old female with risk factors including: known CAD , hypertension, hyperlipidemia, sedentary lifestyle. History of anterior [place] 2008 requiring PCI-stent. She subsequently had cardiac catheterization in 2011 for some chest pain symptoms, but this did not show any new high-grade disease. Her stent was patent at that time. 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 Tuesday, she developed a nosebleed which lasted for several hours (INR was not supratherapeutic). She eventually went to her local emergency room in [place] and found to have significant hypertension. The nosebleed stopped but the patient developed some sensation of substernal chest pressure without radiation. There were no specific exacerbating or alleviating factors, she considered the pain mild to moderate. The symptoms waxed and waned but with her cardiac history she was transferred to [facility] for further workup and management. She was offered C but prefers noninvasive work-up. CIE negative , EKG unremarkable. Of note, patient's three weeks ago and this has been a tremendous stressor. Patient underwent nuclear stress testing yesterday morning. 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 There is no suggestive of ischemia. Patient was seen and examined on the telemetry floor. Patient reports that she remains weak with unsteady gait. Blood pressure medications have been adjusted. Procardia was discontinued yesterday. She continues to have orthostatic hypotension but this seems to have gotten slightly better. Case management was consulted this morning to assist with swing bed placement. The patient requested to be placed in [facility] swing bed in [facility]. However, patient did not meet the requirements. She will need to remain inpatient [facility] for 2 more days. She was evaluated by physical therapy today. She reported that patient had severe unsteady gait and is at very high risk for falling at home. Due to the fact that patient does not have family available to stay with her at home she recommended that patient remain inpatient until she can be accepted and swing bed. We will continue to monitor patient on the telemetry floor. Hopefully, patient will be stable for discharge to swing bed in the next couple of days. Further plan and recommendation to follow per Dr. Murray. Exam (Progress Note) - Constitutional Vitals: Period Temp Pulse Resp BP Sys/Britt Pulse Ox Last 24 Hr 97.2 F-98.1 F 63-88 17-20 98-158/52-73 97-99 Exam: General appearance: no acute distress, under weight - Head Head exam: Present: normal inspection, normocephalic - Eye Eye exam: Present: EOMI. Absent: nystagmus, periorbital swelling Pupils: Present: COREY, normal accommodation - ENT ENT exam: Present: normal external ear exam, normal oropharynx - Neck Neck exam: Absent: tenderness, thyromegaly - Respiratory Respiratory exam: Present: clear to auscultation bilaterally. Absent: accessory muscle use, chest wall tenderness - Cardiovascular Cardiovascular exam: Present: regular rate and rhythm. Absent: carotid bruit, JVD - GI/Abdominal GI/Abdominal exam: Present: normal bowel sounds, soft. Absent: tenderness - Extremities Exam Extremities exam: Present: normal capillary refill, full ROM. Absent: calf tenderness - Back Exam Back exam: Absent: CVA tenderness (L), CVA tenderness (R), muscle spasm - Neurological Exam Neurological exam: Present: alert, oriented X3 - Psychiatric Psychiatric exam: Present: normal affect, normal mood - Skin Skin exam: Present: normal color. Absent: rash Result/EKG - Labs CBC & BMP: 07/15/16 04:21 07/15/16 04:21 Lab Results: I have reviewed the past 24 hour labs Labs: Laboratory Results - last 24 hr 07/15/16 07/15/16 07/15/16 04:21 04:21 04:21 WBC 4.9 RBC 4.80 Hgb 13.4 Hct 40.0 MCV 83.3 L MCH 28 MCHC 33.5 RDW 13.6 Plt Count 196 MPV 10.2 Neut % (Auto) 50.7 Lymph % (Auto) 35.7 [place] % (Auto) 11.6 Eos % (Auto) 1.2 Baso % (Auto) 0.4 Neut # (Auto) 2.5 Lymph # (Auto) 1.8 [place] # (Auto) 0.6 Eos # (Auto) 0.1 Baso # (Auto) 0.0 Immature Gran % 0.4 Nucleated RBC % 0.0 Immature Gran # 0.02 Nucleated RBCs # 0.00 INR 1.7 PT Patient/Control Mix 18.0 Sodium 135 L Potassium 3.6 Chloride 97 L Carbon Dioxide 27 Anion Gap 14.6 BUN 19 H Creatinine 0.70 GFR Calculation 74 BUN/Creatinine Ratio 27.00 H Glucose 88 Calculated Osmolality 270.1 L Calcium 9.1 Magnesium 2.2 <Ugo Murray Jeb - Last Filed: 07/15/16 16:55> Cardiology - PN: Subj Interval history: Patient personally interviewed and examined and chart reviewed. Discussed case and plans with Nida Grant FARM LOAN REPRESENTATIVE. I agree with the patient's history, exam and assessment. This patient is doing better now that the Procardia is been stopped. Her blood pressure increasing and her last orthostatic checks are markedly improved. She feels stronger is walking in the hallway and working with physical therapy. I discussed the situation with the patient and daughter. They feel she needs to go to a swing bed which we will arrange. Exam (Progress Note) - Constitutional Vitals: Period Temp Pulse Resp BP Sys/Britt Pulse Ox Last 24 Hr 97.2 F-98.1 F 63-88 - 98-158/52-73 97-99 Result/EKG - Labs CBC & BMP: 07/15/16 04:21 07/15/16 04:21 Labs: Laboratory Results - last 24 hr 07/15/16 07/15/16 07/15/16 04:21 04:21 04:21 WBC 4.9 RBC 4.80 Hgb 13.4 Hct 40.0 MCV 83.3 L MCH 28 MCHC 33.5 RDW 13.6 Plt Count 196 MPV 10.2 Neut % (Auto) 50.7 Lymph % (Auto) 35.7 [place] % (Auto) 11.6 Eos % (Auto) 1.2 Baso % (Auto) 0.4 Neut # (Auto) 2.5 Lymph # (Auto) 1.8 [place] # (Auto) 0.6 Eos # (Auto) 0.1 Baso # (Auto) 0.0 Immature Gran % 0.4 Nucleated RBC % 0.0 Immature Gran # 0.02 Nucleated RBCs # 0.00 INR 1.7 PT Patient/Control Mix 18.0 Sodium 135 L Potassium 3.6 Chloride 97 L Carbon Dioxide 27 Anion Gap 14.6 BUN 19 H Creatinine 0.70 GFR Calculation 74 BUN/Creatinine Ratio 27.00 H Glucose 88 Calculated Osmolality 270.1 L Calcium 9.1 Magnesium 2.2
[2016-07-15] MEDS: WARFARIN 5 MG TABLET PO SCH (17:44)
[2016-07-16 04:24] LABS: Basophils % 0.6 % (0.0-0.8); Eosinophils # 0.1 10*3/uL (0.0-0.87); Eosinophils % 1.8 % (0.00-10.9); Hematocrit 40.2 VOL% (35.7-47.0); Hemoglobin 13.6 GM/DL (12.0-16.0); Immature Granulocytes % 0.2 %; Immature Granulocytes Absolute 0.01 #; Lymphocytes # 2.3 10*3/uL (1.4-4.0); Lymphocytes % 44.8 % (21.3-54.2); Mean Corpuscular HGB Conc 33.8 GM/DL (32-36); Mean Corpuscular Hemoglobin 28 PG (27-34); Mean Corpuscular Volume 83.2 FL (87-102); Mean Platelet Volume 9.4 FL (9.6-12.0); Monocytes # 0.5 10*3/uL (0.11-0.8); Monocytes % 10.8 % (1.7-12.7); Neutrophils # 2.1 10*3/uL (1.4-7.4); Neutrophils % 41.8 % (38.7-73.9); Platelet Count 177 T/CUMM (130-400); Red Blood Count 4.83 MC/CUMM (3.8-5.5); Red Cell Distribution Width 13.5 % (9.3-17.3)
[2016-07-16 04:51] LABS: INR 1.8; PT Patient Result 19.3 SECS
[2016-07-16 05:01] LABS: Calcium 9.1 MG/DL (8.5-10.1); Magnesium 2.3 MG/DL (1.8-2.4); Osmolality,Calculated 274.8 MOS/KG (273-304)
[2016-07-16] MEDS: ROSUVASTATIN 10 MG TABLET PO SCH (09:13)
[2016-07-16] MEDS: METOPROLOL SUCCINATE XL 25 MG TABLET PO SCH (09:13)
[2016-07-16] MEDS: PANTOPRAZOLE 40 MG TABLET PO SCH (09:13)
[2016-07-16] MEDS: ASPIRIN EC 81 MG TABLET PO SCH (09:13)
[2016-07-16] MEDS: OMEGA 3 ACID ETHYL ESTERS 1 GM CAPSULE PO SCH (09:13)
[2016-07-16] MEDS: HYDROXYCHLOROQUINE 200 MG TABLET PO SCH (09:13)
[2016-07-16] MEDS: LISINOPRIL/HCTZ 20-25 MG TABLET PO SCH (09:13)
[2016-07-16] MEDS: cycloSPORINE OPH EMUL 1 VIAL BOTH EYES SCH ×2 (09:13→20:26)
[2016-07-16] MEDS: CALCIUM (CARBONATE) 600 MG TABLET PO SCH (09:13)
--- NOTE | 2016-07-16 10:58 | Cardiology Progress Note ---
<Nida Grant - Last Filed: 07/16/16 10:55> Assessment and Plan (1) Chest pain Status: Resolved Assessment and plan: She is without chest pain, heaviness and tightness. Patient had normal Cardiolite stress test this admission. Current Visit: Yes (2) Chronic anticoagulation Status: Chronic Assessment and plan: INR 1.8. We will continue with daily INR. Current Visit: Yes (3) Coronary artery disease Status: Chronic Current Visit: Yes (4) HTN (hypertension) Status: Chronic Assessment and plan: We will continue to hold Procardia at this time due to episodes of orthostatic hypotension. This is improving. We will continue to monitor orthostatic vital signs and further adjust as needed. Further plan and addendum to follow per Dr. Murray. Current Visit: Yes (5) History of anterior wall myocardial infarction Status: Chronic Current Visit: Yes (6) Hyperlipidemia Status: Chronic Assessment and plan: Continue current plan of care with lipid lowering agent. Current Visit: Yes (7) Orthostatic hypotension Status: Acute Assessment and plan: We will continue to hold Procardia as this seems to be contributing to her orthostatic hypotension. Plan for discharge to swing bed tomorrow. Current Visit: Yes Cardiology - PN: Subj Interval history: PLUMBER'S HELPER: DR. MURRAY PCP: DR. DEBBIE PINEDA Summary: Ms. Andrews, 80 year old female with risk factors including: known CAD , hypertension, hyperlipidemia, sedentary lifestyle. History of anterior [place] 2008 requiring PCI-stent. She subsequently had cardiac catheterization in 2011 for some chest pain symptoms, but this did not show any new high-grade disease. Her stent was patent at that time. 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 Tuesday, she developed a nosebleed which lasted for several hours (INR was not supratherapeutic). She eventually went to her local emergency room in [place] and found to have significant hypertension. The nosebleed stopped but the patient developed some sensation of substernal chest pressure without radiation. There were no specific exacerbating or alleviating factors, she considered the pain mild to moderate. The symptoms waxed and waned but with her cardiac history she was transferred to [facility] for further workup and management. She was offered C but prefers noninvasive work-up. CIE negative , EKG unremarkable. Of note, patient's three weeks ago and this has been a tremendous stressor. Patient underwent nuclear stress testing yesterday morning. 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 There is no suggestive of ischemia. Patient was seen and examined on the telemetry floor. Daughter at bedside. Patient is sitting up in chair in no acute distress. Not requiring oxygen. She denies chest pain, heaviness and tightness. She reports that her weakness continues to improve after Procardia has been discontinued. She reports feeling stronger after physical therapy was initiated. Orthostatic hypotension is also improving. Will plan for patient to be discharged to swing bed tomorrow. Labs are unremarkable. Vital signs stable. Patient is currently normal sinus rhythm heart rates in the 80s without any overt arrhythmias or ectopy noted. Further plan and addendum to follow per Dr. Murray. Exam (Progress Note) - Constitutional Vitals: Period Temp Pulse Resp BP Sys/Britt Pulse Ox Last 24 Hr 96.2 F-98.1 F 60-88 16-20 99-167/60-88 96-100 Exam: General appearance: no acute distress, under weight - Head Head exam: Present: normal inspection, normocephalic - Eye Eye exam: Present: EOMI. Absent: nystagmus, periorbital swelling Pupils: Present: COREY, normal accommodation - ENT ENT exam: Present: normal external ear exam, normal oropharynx - Neck Neck exam: Absent: tenderness, thyromegaly - Respiratory Respiratory exam: Present: clear to auscultation bilaterally. Absent: accessory muscle use, chest wall tenderness - Cardiovascular Cardiovascular exam: Present: regular rate and rhythm. Absent: carotid bruit, JVD - GI/Abdominal GI/Abdominal exam: Present: normal bowel sounds, soft. Absent: tenderness - Extremities Exam Extremities exam: Present: normal capillary refill, full ROM. Absent: calf tenderness - Back Exam Back exam: Absent: CVA tenderness (L), CVA tenderness (R), muscle spasm - Neurological Exam Neurological exam: Present: alert, oriented X3 - Psychiatric Psychiatric exam: Present: normal affect, normal mood - Skin Skin exam: Present: normal color. Absent: rash Result/EKG - Labs CBC & BMP: 07/16/16 04:16 07/16/16 04:16 Lab Results: I have reviewed the past 24 hour labs Labs: Laboratory Results - last 24 hr 07/16/16 07/16/16 07/16/16 04:16 04:16 04:16 WBC 5.0 RBC 4.83 Hgb 13.6 Hct 40.2 MCV 83.2 L MCH 28 MCHC 33.8 RDW 13.5 Plt Count 177 MPV 9.4 L Neut % (Auto) 41.8 Lymph % (Auto) 44.8 [place] % (Auto) 10.8 Eos % (Auto) 1.8 Baso % (Auto) 0.6 Neut # (Auto) 2.1 Lymph # (Auto) 2.3 [place] # (Auto) 0.5 Eos # (Auto) 0.1 Baso # (Auto) 0.0 Immature Gran % 0.2 Nucleated RBC % 0.0 Immature Gran # 0.01 Nucleated RBCs # 0.00 INR 1.8 PT Patient/Control Mix 19.3 Sodium 137 Potassium 4.0 Chloride 99 Carbon Dioxide 30 Anion Gap 12.0 BUN 22 H Creatinine 0.80 GFR Calculation 63 BUN/Creatinine Ratio 27.00 H Glucose 88 Calculated Osmolality 274.8 Calcium 9.1 Magnesium 2.3 Specialty Discharge - Follow Up or Referrals Follow up with: Ugo Murray MD [Physician] - (Follow-up appointment with Dr. Murray in 1 month with BMP, magnesium, INR and EKG) Debbie Pineda MD [Physician] - (Patient will keep her follow-up with Dr. Debbie Pineda next week.) <Ugo Murray - Last Filed: 07/16/16 18:11> Cardiology - PN: Subj Interval history: Patient personally interviewed and examined and chart reviewed. Daughter is with her in the room. I'll discuss his case with Nida Grant NP. I agree with assessment and plans. I will stop the hydrochlorothiazide and the patient's Prinzide since the BUN is elevated some and she continues to have a little orthostasis but she is ambulating and doing well without any real symptomatology. The plan is to be to send her to swing bed to continue to rehabilitate. Her blood pressure can be monitored there. I discussed this plan with the patient and the daughter and they are agreeable. Exam (Progress Note) - Constitutional Vitals: Period Temp Pulse Resp BP Sys/Britt Pulse Ox Last 24 Hr 96.2 F-98.3 F 60-88 16-20 99-167/60-91 96-100 Result/EKG - Labs CBC & BMP: 07/16/16 04:16 07/16/16 04:16 Labs: Laboratory Results - last 24 hr 07/16/16 07/16/16 07/16/16 04:16 04:16 04:16 WBC 5.0 RBC 4.83 Hgb 13.6 Hct 40.2 MCV 83.2 L MCH 28 MCHC 33.8 RDW 13.5 Plt Count 177 MPV 9.4 L Neut % (Auto) 41.8 Lymph % (Auto) 44.8 [place] % (Auto) 10.8 Eos % (Auto) 1.8 Baso % (Auto) 0.6 Neut # (Auto) 2.1 Lymph # (Auto) 2.3 [place] # (Auto) 0.5 Eos # (Auto) 0.1 Baso # (Auto) 0.0 Immature Gran % 0.2 Nucleated RBC % 0.0 Immature Gran # 0.01 Nucleated RBCs # 0.00 INR 1.8 PT Patient/Control Mix 19.3 Sodium 137 Potassium 4.0 Chloride 99 Carbon Dioxide 30 Anion Gap 12.0 BUN 22 H Creatinine 0.80 GFR Calculation 63 BUN/Creatinine Ratio 27.00 H Glucose 88 Calculated Osmolality 274.8 Calcium 9.1 Magnesium 2.3
--- NOTE | 2016-07-16 13:55 | Discharge Summary ---
<Nida Grant - Last Filed: 07/16/16 14:51> Hospital Course - Hospital Course Hospital Course: GUM MAKER: DR. MURRAY PCP: DR. DEBBIE PINEDA Ms. Andrews, 80 year old female with risk factors including: known CAD, hypertension, hyperlipidemia, sedentary lifestyle. History of anterior [place] 2008 requiring PCI-stent. She subsequently had cardiac catheterization in 2011 for some chest pain symptoms, but this did not show any new high-grade disease. Her stent was patent at that time. 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 Tuesday07/10/16, she developed a nosebleed which lasted for several hours (INR was not supratherapeutic). She eventually went to her local emergency room in [place] and found to have significant hypertension. The nosebleed stopped but the patient developed some sensation of substernal chest pressure without radiation. There were no specific exacerbating or alleviating factors, she considered the pain mild to moderate. The symptoms waxed and waned but with her cardiac history she was transferred to [facility] for further workup and management. She was offered C but prefers noninvasive work-up. CIE negative , EKG unremarkable. Of note, patient's three weeks ago and this has been a tremendous stressor. Patient underwent nuclear cardiac stress testing 07/12/16. 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 There was no evidence of acute ischemia. During her hospitalization she had complaints of fatigue and weakness. She was noted to have orthostatic hypotension. This was suspected to be secondary to the Procardia that was initiated upon admission. Subsequently, Procardia was held. After Procardia was discontinued orthostatic hypotension and weakness improved. She was evaluated by physical therapy. Physical therapy suggested that patient be transferred to a swing bed due to unsteady gait, high risk for falling at home and no family available to stay with her. Patient was then accepted to [facility] in [facility]. Having felt the patient is at maximal medical therapy, she will be discharged to [facility] in stable condition. Patient's INR will be checked on admission to [facility] and every Tuesday and Tuesday. Coumadin will be adjusting accordingly. Patient keep her follow-up appointment with Dr. Debbie Pineda. She will follow with Dr. Murray in approximately 1 month with CBC, BMP, magnesium, EKG and INR. Patient verbalizes understanding of discharge instructions and discharge medications. - Time spent with patient Time with patient DS: Greater than 30 minutes Diagnosis - Discharge Diagnosis (1) Chest pain Status: Resolved (2) Chronic anticoagulation Status: Chronic (3) Coronary artery disease Status: Chronic (4) HTN (hypertension) Status: Chronic (5) History of anterior wall myocardial infarction Status: Chronic (6) Hyperlipidemia Status: Chronic (7) Orthostatic hypotension Status: Resolved Specialty Discharge - Follow Up or Referrals Follow up with: Debbie Pineda MD [Physician] - (Patient will keep her follow-up with Dr. Debbie Pineda next week.) Ugo Murray MD [Physician] - (Follow-up appointment with Dr. Murray in 1 month with BMP, magnesium, INR and EKG) Discharge Plan - Discharge Data Disposition: Swing Bed, Hos Based, [facility] Condition at Discharge: Stable Discharge Diet: heart healthy Activity: as per physical therapy Hygiene: other (With assistance) Weight Bearing at Discharge: other (With the assistance) Driving: not until seen by doctor Contact your physician if you experience:: fever over 101, Difficulty voiding, Redness or swelling, Nausea/Vomiting, Shortness of breath, Bleeding, pain uncontrolled by pain medications - Discharge Medications New Warfarin [Coumadin] 2.5 mg PO SuTuSa@1800 #12 tablet Warfarin [Coumadin] 5 mg PO MoWeThFr@1800 #18 tablet Lisinopril [Prinivil] 20 mg PO BID tablet Continue Rosuvastatin [Crestor] 10 mg PO DAILY [place]-3/Dha/Epa/Fish Oil [Fish Oil Dr 500 mg Softgel] 1,000 mg PO DAILY Calcium Carbonate [Calcium] 600 mg PO DAILY Hydroxychloroquine [Plaquenil] 200 mg PO DAILY Aspirin EC Tab 81 mg PO DAILY cycloSPORINE OPH EMUL [Restasis] 1 drop BOTH EYES BID Metoprolol Succinate Xl [Toprol Xl] 25 mg PO DAILY #30 tablet Discontinued Metoprolol Tartrate 25 mg PO DAILY Lisinopril/Hctz 20-25 [Prinzide 20-25] 1 mg PO DAILY Warfarin Sodium 5 mg PO DIRECTED Warfarin [Coumadin] 2.5 mg PO QOTHER DAY@1800 - Follow Up or Referral Follow Up: Ugo Murray MD [Physician] - (Follow-up appointment with Dr. Murray in 1 month with BMP, magnesium, INR and EKG) Debbie Pineda MD [Physician] - (Patient will keep her follow-up with Dr. Debbie Pineda next week.) - Forms/Instructions Exam - Constitutional Vitals: Period Temp Pulse Resp BP Sys/Britt Pulse Ox Last 24 Hr 96.2 F-98.3 F 60-88 16-20 99-167/60-91 96-100 Exam: General appearance: no acute distress, under weight - Head Head exam: Present: normal inspection, normocephalic - Eye Eye exam: Present: EOMI. Absent: nystagmus, periorbital swelling Pupils: Present: COREY, normal accommodation - ENT ENT exam: Present: normal external ear exam, normal oropharynx - Neck Neck exam: Absent: tenderness, thyromegaly - Respiratory Respiratory exam: Present: clear to auscultation bilaterally. Absent: accessory muscle use, chest wall tenderness - Cardiovascular Cardiovascular exam: Present: regular rate and rhythm. Absent: carotid bruit, JVD - GI/Abdominal GI/Abdominal exam: Present: normal bowel sounds, soft. Absent: tenderness - Extremities Exam Extremities exam: Present: normal capillary refill, full ROM. Absent: calf tenderness - Back Exam Back exam: Absent: CVA tenderness (L), CVA tenderness (R), muscle spasm - Neurological Exam Neurological exam: Present: alert, oriented X3 - Psychiatric Psychiatric exam: Present: normal affect, normal mood - Skin Skin exam: Present: normal color. Absent: rash Discharge Results Procedures and tests throughout hospitalization: Pending Orders 07/17/16 04:00 CBC [Comp Blood Count Auto Diff] IN AM Labs on day of discharge: Labs from last 24 hours 07/16/16 07/16/16 07/16/16 04:16 04:16 04:16 WBC 5.0 RBC 4.83 Hgb 13.6 Hct 40.2 MCV 83.2 L MCH 28 MCHC 33.8 RDW 13.5 Plt Count 177 MPV 9.4 L Neut % (Auto) 41.8 Lymph % (Auto) 44.8 [place] % (Auto) 10.8 Eos % (Auto) 1.8 Baso % (Auto) 0.6 Neut # (Auto) 2.1 Lymph # (Auto) 2.3 [place] # (Auto) 0.5 Eos # (Auto) 0.1 Baso # (Auto) 0.0 Immature Gran % 0.2 Nucleated RBC % 0.0 Immature Gran # 0.01 Nucleated RBCs # 0.00 INR 1.8 PT Patient/Control Mix 19.3 Sodium 137 Potassium 4.0 Chloride 99 Carbon Dioxide 30 Anion Gap 12.0 BUN 22 H Creatinine 0.80 GFR Calculation 63 BUN/Creatinine Ratio 27.00 H Glucose 88 Calculated Osmolality 274.8 Calcium 9.1 Magnesium 2.3 DS: Provider Date of admission: 07/14/16 15:23 Primary care physician: . No PCP Attending physician on admission: Ulises Forrest MD Consults: 07/14/16 16:28 Consult to Physical Therapy [CONS] Routine Reason for Physical Therapy: Evaluate and Treat Weakness Ambulation 07/15/16 09:37 Consult to Case Mgmt/Social Srvs [CONS] Routine Reason for Case Mgmt/Social Srvs: Swingbed/SNF/Fdc Consult Comment: Swing bed Discharging clinician: Nida Grant NP Expected date of discharge: 07/17/16 <Ugo Murray - Last Filed: 07/17/16 07:26> Hospital Course - Hospital Course Hospital Course: The patient the morning of discharge 07/17/2001 was personally interviewed by me and examined and chart reviewed. I agree with the history as well as assessment and plan in this discharge summary. In addition and summation since this was dictated by his stopped the hydrochlorothiazide in her lisinopril/HCTZ and have increased her lisinopril to 20 g twice a day. Discussed going to swing bed in her follow-up. Also discussed the fact or palpitations are without any particular rate or rhythm disturbance. Recurrent perfusion study was normal. There is no evidence of ischemia induced. She has been ambulating and being very active. I think much of her issue is depression from her recent 's . She will go to swing bed note for recuperation and rehabilitation. - Time spent with patient Time with patient DS: Greater than 30 minutes
[2016-07-16] MEDS: WARFARIN 5 MG TABLET PO SCH (17:01)
[2016-07-17 04:22] LABS: Red Blood Count 4.72 MC/CUMM (3.8-5.5)
[2016-07-17 04:23] LABS: Basophils % 0.2 % (0.0-0.8); Eosinophils # 0.1 10*3/uL (0.0-0.87); Eosinophils % 1.2 % (0.00-10.9); Hematocrit 39.9 VOL% (35.7-47.0); Hemoglobin 13.3 GM/DL (12.0-16.0); Immature Granulocytes % 0.2 %; Immature Granulocytes Absolute 0.01 #; Lymphocytes # 1.6 10*3/uL (1.4-4.0); Lymphocytes % 32.7 % (21.3-54.2); Mean Corpuscular HGB Conc 33.3 GM/DL (32-36); Mean Corpuscular Hemoglobin 28 PG (27-34); Mean Corpuscular Volume 84.5 FL (87-102); Mean Platelet Volume 9.8 FL (9.6-12.0); Monocytes # 0.6 10*3/uL (0.11-0.8); Monocytes % 11.4 % (1.7-12.7); Neutrophils # 2.7 10*3/uL (1.4-7.4); Neutrophils % 54.3 % (38.7-73.9); Platelet Count 174 T/CUMM (130-400); Red Cell Distribution Width 13.3 % (9.3-17.3)
[2016-07-17 04:41] LABS: INR 1.9
[2016-07-17 04:42] LABS: PT Patient Result 21.2 SECS
[2016-07-17 04:46] LABS: Calcium 8.9 MG/DL (8.5-10.1); Magnesium 2.2 MG/DL (1.8-2.4); Osmolality,Calculated 275.8 MOS/KG (273-304); Potassium 3.8 MMOL/L (3.5-5.1)
[2016-07-17] MEDS: ROSUVASTATIN 10 MG TABLET PO SCH (08:03)
[2016-07-17] MEDS: HYDROXYCHLOROQUINE 200 MG TABLET PO SCH (08:03)
[2016-07-17] MEDS: PANTOPRAZOLE 40 MG TABLET PO SCH (08:03)
[2016-07-17] MEDS: ASPIRIN EC 81 MG TABLET PO SCH (08:03)
[2016-07-17] MEDS: METOPROLOL SUCCINATE XL 25 MG TABLET PO SCH (08:03)
[2016-07-17] MEDS: OMEGA 3 ACID ETHYL ESTERS 1 GM CAPSULE PO SCH (08:03)
[2016-07-17] MEDS: cycloSPORINE OPH EMUL 1 VIAL BOTH EYES SCH (08:04)
[2016-07-17] MEDS: CALCIUM (CARBONATE) 600 MG TABLET PO SCH (08:04)
[2016-07-17 08:55] VITALS: BP 155/81
[2016-07-17] MEDS ORDERED: LISINOPRIL 20 MG TABLET PO SCH ×2 (09:00)
[2016-07-17] MEDS ORDERED: WARFARIN 2.5 MG TABLET PO SCH (18:00)
== END 2016-07-17 09:10 | disposition swing bed (61) | DRG 313 ==
LOC: N.EDINP 03:05 → N.ED 03:05 → N.TELEN 07:35
PROVIDERS: ADMIT Internal Medicine Cardiovascular Disease; ATTEND Internal Medicine Cardiovascular Disease